=== PATIENT | male | born 1950 | race Caucasian/White ===

== ENCOUNTER → 2023-09-29 09:07 | Outpatient (REF) | payer OTHER, SELFPAY | LOC: DHCBS MAIN 09:07 | PROVIDERS: ATTENDING PHYSICIAN Nuclear Medicine Nuclear Cardiology; FAMILY PHYSICIAN Internal Medicine | DX: I25.10 Atherosclerotic heart disease of native coronary artery without angina pectoris (principal); I42.8 Other cardiomyopathies | CPT/HCPCS: 93306 ==

== ENCOUNTER 2024-07-16 05:38 | Emergency (ER) | payer OTHER, SELFPAY ==
[2024-07-16 05:41] VITALS: BP 184/116; BMI 33.2
--- NOTE | 2024-07-16 07:05 | ED.GENMED ---
History of Present Illness
<Rodolfo Hutton DO, Resident - Last Filed: 07/16/24 08:39>
General
Chief Complaint: Nose Bleed
Source: patient, records and spouse
Time Seen by Provider: 07/16/24 06:44
History of Present Illness
History of Present Illness:
74-year-old male with past medical history significant for hypertension, hyperlipidemia, CAD, heart failure reduced ejection presents for severe epistaxis, bilateral. Patient reports symptoms started last night, brief and resolved. However this
morning when waking up to use the bathroom at approximately 4:30 AM patient noticed his left nares was bleeding profusely, he describes it as like a faucet. Patient reports not taking any blood thinners, however he does take 81 mg aspirin daily.
In the emergency department patient's blood pressure is 184/116, denies blurry vision, chest pain, shortness of breath, abdominal pain.
Past History
<Rodolfo Hutton DO, Resident - Last Filed: 07/16/24 08:39>
Past History
ED Past Medical History: HTN, Hypercholesterolemia and Other (Sciatica)
ED Past Surgical History: None and Orthopedic (Right total knee replacement, Back surgery)
Social History
Tobacco: Former smoker
Alcohol: Occasional
Personal:
Living: with family
Review of Systems
<Rodolfo Hutton DO, Resident - Last Filed: 07/16/24 08:39>
Review of Systems
Constitutional: Reports no symptoms
EENT: Reports other (Epistaxis bilaterally worse on left)
Respiratory: Reports no symptoms; Denies cough or hemoptysis
Cardiac: Reports no symptoms
ABD/GI: Reports no symptoms
: Reports no symptoms
Phy Exam
<Rodolfo Hutton DO, Resident - Last Filed: 07/16/24 08:39>
General Physical Exam
General Presentation: well appearing and no apparent distress
General Skin: warm and dry
ENT Exam
ENT Exam: other (Fresh blood present in left and right naris, more blood on left than right. Pharyngeal mucosa normal)
Cardiovascular Exam
Cardiovascular Exam: regular rate/rhythm, no edema and no murmur
Pulmonary Exam
Pulmonary Exam: lungs clear and no respiratory distress
Course
<Rodolfo Hutton DO, Resident - Last Filed: 07/16/24 08:39>
Orders/Labs/Results
Orders:
Orders
07/16/24 09:00
Oxymetazoline HCl [Afrin Nasal [place]] See Dose Instructions NASAL BID
Vital Signs
Initial and Last Documented VS:
Initial Vital Signs
Temp Pulse Resp BP Pulse Ox
97.6 F 95 18 184/116 96
07/16/24 05:41 07/16/24 05:41 07/16/24 05:41 07/16/24 05:41 07/16/24 05:41
Last Documented Vital Signs
Temp Pulse Resp BP Pulse Ox
97.6 F 75 16 147/80 97
07/16/24 05:41 07/16/24 07:23 07/16/24 07:23 07/16/24 08:00 07/16/24 08:00
<Maximilian Rivera DO - Last Filed: 07/16/24 08:27>
Orders/Labs/Results
Orders:
Orders
07/16/24 09:00
Oxymetazoline HCl [Afrin Nasal [place]] See Dose Instructions NASAL BID
Vital Signs
Initial and Last Documented VS:
Initial Vital Signs
Temp Pulse Resp BP Pulse Ox
97.6 F 95 18 184/116 96
07/16/24 05:41 07/16/24 05:41 07/16/24 05:41 07/16/24 05:41 07/16/24 05:41
Last Documented Vital Signs
Temp Pulse Resp BP Pulse Ox
97.6 F 75 16 147/80 97
07/16/24 05:41 07/16/24 07:23 07/16/24 07:23 07/16/24 08:00 07/16/24 08:00
Procedures
<Maximilian Rivera DO - Last Filed: 07/16/24 08:27>
Nosebleed
Drug treatment: Lidocaine and Epinephrine
Treatment: local pressure applied
Post treatment bleeding: none- good control
<Rodolfo Hutton DO, Resident - Last Filed: 07/16/24 08:39>
MDM/Problems Addressed
Differential Diagnosis Includes:
Hypertensive urgency, epistaxis, dry mucosa, trauma,
MDM/Problems Addressed:
74-year-old male past medical significant for hypertension, CAD, heart failure with reduced ejection fraction, who reports not taking blood thinners only daily aspirin, presents for 2 episodes of epistaxis
First episode was last night which was brief and self resolving, second episode started this morning at 430 which is much more severe
Patient reports diffuse 'like a faucet' bleeding from his left nare, currently patient is using nasal clip applied to the nasal bridge
Of note blood pressure elevated in emergency department 184/116, patient denies blurry vision, no chest pain abdominal pain or dizziness.
Patient reports no recent illness or sick contacts, no recent trauma to the nose or face
Likely epistaxis secondary to dry mucosa. Encouraged humidifier use during winter
Performed nasal packing with lidocaine and epinephrine soaked cotton swab of the left nare. Patient evacuated nose of clots before procedure
Epistaxis resolved after packing procedure with lidocaine and epinephrine cotton swab
Nares was reevaluated, no active bleed or lesion requiring cauterization was visualized. Small dried blood appreciated on anterior nasal septum on left. Will hold off with silver nitrate cauterization
Patient denies paleness, coldness and fatigue and reports not being anemic at baseline
Will prescribe metolazone nasal drops to be used every 12 hours for the next 3 days
Encourage patient to follow-up with ENT and PCP, ENT referral provided
Stable for discharge, encourage use of blood pressure medication once home
<Rodolfo Hutton DO, Resident - Last Filed: 07/16/24 08:39>
*Critical Care Note
Total Time (30-74mins, 75-104mins- exclusive of procedures): Not Applicable
ED Attending Note
<Rodolfo Hutton DO, Resident - Last Filed: 07/16/24 08:39>
-
Portions of this chart may have been created with voice recognition software.� Occasional wrong word or��sound alike� substitutions may have occurred due to the inherent limitations of voice recognition software.
<Maximilian Rivera DO - Last Filed: 07/16/24 08:27>
ED Attending Note
Patient seen and examined by attending physician: Yes
I performed a history and physical exam of patient and discussed management with resident, I reviewed resident's note and agree with documented findings and plan of care.: Yes
ED Attending Note:
I have reviewed and agree with history and treatment plan by Rodolfo Hutton DO. My exam revealed
74-year-old male in no distress. Bleeding controlled after treatment with epinephrine, lidocaine and compression. Stable for discharge. Follow-up with ENT. Patient given metolazone for 3-day course.
Discharge Plan
Departure
Patient Disposition: Home (Routine Discharge)
Date of Disposition: 07/16/24
Time of Disposition: 08:23
Patient with high blood pressure during this ER visit?: Yes
Condition: Good
Discharge Problem:
Epistaxis not due to trauma
Instructions: Nosebleeds (DC), BLOOD PRESSURE
Prescriptions:
No Action
multivitamin with folic acid [Tab-A-Melany] 1 TABLET tablet
1 tab PO QPM
aspirin 81 MG tablet,delayed release (DR/EC)
81 mg PO QPM
acetaminophen [Tylenol Extra Strength] 500 MG tablet
1,000 mg PO Q8HPRN PRN (Reason: pain)
alprazolam 0.25 mg tablet
0.25 mg PO HSPRN PRN (Reason: anxiety)
rosuvastatin 20 mg tablet
20 mg PO DAILY
sennosides [senna] 1 TABLET tablet
2 tab PO BID PRN (Reason: constipation)
furosemide 40 mg Tablet
40 mg PO DAILY Qty: 30 0RF
carvedilol 6.25 mg Tablet
6.25 mg PO BID Qty: 60 0RF
Entresto 24-26 mg Tablet
1 tab PO BID Qty: 60 0RF
spironolactone 25 mg tablet
12.5 mg PO DAILY Qty: 20 0RF
Jardiance 10 mg tablet
10 mg PO DAILY Qty: 30 0RF
Referrals:
Tushar Kirk MD [Active] - Call in 1-3 days for appt
Jamal Em DO [Family Provider] - Call in 1-3 days for appt
Activity Restrictions/Additional Instructions:
Please call your primary care provider in 1 to 3 days for a follow-up appointment
Please call ENT. Adriana In 1 to 3 days to schedule a follow-up appoint
Please refrain from touching, picking or blowing your nose for the next 3 days
Please take your blood pressure medications when you arrive home
Please return to the emergency department if your symptoms return, worsen or with any concerns. Thank you for choosing [facility]!
Interventions
Interventions:
*Risk Screen - Suicide Last Done: 07/16/24 05:41
*General Assessment Last Done: 07/16/24 05:41
*Neglect/Abuse Screening Last Done: 07/16/24 05:41
ED- Fall Risk Assessment Last Done: 07/16/24 05:43
ED-EENT Assessment Last Done: 07/16/24 07:23
Discharge Date and Time
Print Language: THAI
[2024-07-16 07:06] VITALS: BP 157/97
[2024-07-16 07:23] VITALS: BP 157/97
[2024-07-16 08:00] VITALS: BP 147/80
[2024-07-16] MEDS: AFRIN NASAL SPRAY 2 SPRAYS NASAL (08:42)
== END 2024-07-16 08:54 | disposition home or self-care (01) ==
LOC: EMR 05:38
PROVIDERS: EMERGENCY PHYSICIAN Emergency Medicine; FAMILY PHYSICIAN Internal Medicine
DX: R04.0 Epistaxis (principal); E78.00 Pure hypercholesterolemia, unspecified; I11.0 Hypertensive heart disease with heart failure; I50.9 Heart failure, unspecified; I25.10 Atherosclerotic heart disease of native coronary artery without angina pectoris; Z87.891 Personal history of nicotine dependence; Z79.82 Long term (current) use of aspirin
CPT/HCPCS: 30901; 99282

== ENCOUNTER 2024-07-18 09:38 | Emergency (ER) | payer OTHER, SELFPAY ==
[2024-07-18 09:41] VITALS: BP 166/116
--- NOTE | 2024-07-18 10:21 | ED.GENMED ---
History of Present Illness
General
Chief Complaint: Nose Bleed
Source: patient
Exam Limitations: none
Time Seen by Provider: 07/18/24 10:09
History of Present Illness
History of Present Illness:
Patient returns with a recurrent nosebleed. Here 2 days ago. No source was found however bleeding stopped. Started spontaneously this morning. Does admit to blowing his nose frequently. Feels fine otherwise. No unusual thinners. Stop taking
an aspirin per day
Past History
Past History
ED Past Medical History: HTN, Hypercholesterolemia and Other (Sciatica)
ED Past Surgical History: None and Orthopedic (Right total knee replacement, Back surgery)
Social History
Tobacco: Former smoker
Alcohol: Occasional
Personal:
Living: with family
Phy Exam
Physical Exam
Physical Exam:
General: Nontoxic appearing in no distress
Skin: Warm and dry, no rash. No petechia or purpura
Neuro: Alert, nontoxic, grossly nonfocal
Psychiatric: Good eye contact and appropriate
ENT: Bleeding from the left nares. Right nares clear. Pharynx clear. Mild bleeding at this time.
Course
Vital Signs
Initial and Last Documented VS:
Initial Vital Signs
Pulse Resp BP Pulse Ox
88 18 166/116 98
07/18/24 09:41 07/18/24 09:41 07/18/24 09:41 07/18/24 09:41
Last Documented Vital Signs
Pulse Resp BP Pulse Ox
88 18 161/98 98
07/18/24 09:41 07/18/24 09:41 07/18/24 11:06 07/18/24 09:41
Procedures
Nosebleed
Drug treatment: Lidocaine and Epinephrine
Treatment: Silver nitrate cautery and Merocel packing
Post treatment bleeding: none- good control
*Critical Care Note
Total Time (30-74mins, 75-104mins- exclusive of procedures): Not Applicable
Update Note
Update Note:
After lidocaine with epinephrine was removed. Small bleeding site noted on the septum.
Rechecked prior to discharge. No bleeding. Merocel had been replaced once.
ED Attending Note
-
Portions of this chart may have been created with voice recognition software.� Occasional wrong word or��sound alike� substitutions may have occurred due to the inherent limitations of voice recognition software.
Discharge Plan
Departure
Patient Disposition: Home (Routine Discharge)
Date of Disposition: 07/18/24
Time of Disposition: 10:47
Patient with high blood pressure during this ER visit?: Yes
Discharge Problem:
Left nares epistaxis, Hypertension
Instructions: Nosebleeds (DC), BLOOD PRESSURE
Prescriptions:
No Action
multivitamin with folic acid [Tab-A-Melany] 1 TABLET tablet
1 tab PO QPM
aspirin 81 MG tablet,delayed release (DR/EC)
81 mg PO QPM
acetaminophen [Tylenol Extra Strength] 500 MG tablet
1,000 mg PO Q8HPRN PRN (Reason: pain)
alprazolam 0.25 mg tablet
0.25 mg PO HSPRN PRN (Reason: anxiety)
rosuvastatin 20 mg tablet
20 mg PO DAILY
sennosides [senna] 1 TABLET tablet
2 tab PO BID PRN (Reason: constipation)
furosemide 40 mg Tablet
40 mg PO DAILY Qty: 30 0RF
carvedilol 6.25 mg Tablet
6.25 mg PO BID Qty: 60 0RF
Entresto 24-26 mg Tablet
1 tab PO BID Qty: 60 0RF
spironolactone 25 mg tablet
12.5 mg PO DAILY Qty: 20 0RF
Jardiance 10 mg tablet
10 mg PO DAILY Qty: 30 0RF
Activity Restrictions/Additional Instructions:
Packing removal in 2 [address] Warner.
Or as we discussed, you could carefully remove it tomorrow at home given the holidays
Interventions
Interventions:
*Risk Screen - Suicide Last Done: 07/18/24 11:07
*General Assessment Last Done: 07/18/24 11:07
*Neglect/Abuse Screening Last Done: 07/18/24 11:07
*Nursing Disposition Last Done: 07/18/24 12:33
ED-EENT Assessment Last Done: 07/18/24 11:00
Discharge Date and Time
Discharge Date/Time: 07/18/24 12:34
Print Language: HUNGARIAN
[2024-07-18 11:06] VITALS: BP 161/98
== END 2024-07-18 12:34 | disposition home or self-care (01) ==
LOC: EMR 09:38
PROVIDERS: EMERGENCY PHYSICIAN Emergency Medicine; FAMILY PHYSICIAN Internal Medicine
DX: R04.0 Epistaxis (principal); I10 Essential (primary) hypertension; E78.00 Pure hypercholesterolemia, unspecified; Z87.891 Personal history of nicotine dependence
CPT/HCPCS: 30901; 99282

== ENCOUNTER 2024-07-18 14:50 | Emergency (ER) | payer OTHER, SELFPAY ==
[2024-07-18 14:51] VITALS: BP 162/76
--- NOTE | 2024-07-18 18:17 | ED.GENMED ---
History of Present Illness
General
Chief Complaint: Nose Bleed
Time Seen by Provider: 07/18/24 18:06
History of Present Illness
History of Present Illness:
Patient is a 74-year-old man presenting to the emergency department nosebleed. Per chart review patient was seen here earlier. He had packing in place and was discharged. He thought he was tasting blood and noticed some blood when he was wiping
his nose on the packing so he came in for further evaluation. He denies any blood leaking around the packing. No lightheadedness dizziness. He is not on any blood thinners.
Past History
Past History
ED Past Medical History: HTN, Hypercholesterolemia and Other (Sciatica)
ED Past Surgical History: None and Orthopedic (Right total knee replacement, Back surgery)
Social History
Tobacco: Former smoker
Alcohol: Occasional
Personal:
Living: with family
Phy Exam
Physical Exam
Physical Exam:
GENERAL: in no acute distress
HEENT: normocephalic, extraocular movements intact, moist oral mucosa, nasal packing in place with no bleeding surrounding it, no bleeding in the posterior oropharynx
NECK: normal inspection
RESPIRATORY: no respiratory distress, clear to auscultation bilaterally
CARDIOVASCULAR: regular rate and rhythm
EXTREMITIES: non-tender, no edema/swelling
NEUROLOGIC: awake and alert, moves all extremities
SKIN: warm
Course
Vital Signs
Initial and Last Documented VS:
Initial Vital Signs
Temp Pulse Resp BP Pulse Ox
97.4 F 69 16 162/76 98
07/18/24 14:51 07/18/24 14:51 07/18/24 14:51 07/18/24 14:51 07/18/24 14:51
Last Documented Vital Signs
Temp Pulse Resp BP Pulse Ox
97.4 F 69 16 162/76 98
07/18/24 14:51 07/18/24 14:51 07/18/24 14:51 07/18/24 14:51 07/18/24 14:51
MDM/Problems Addressed
Differential Diagnosis Includes:
Patient is a 74-year-old man presenting to the emergency department with bleeding. Vitals are unremarkable and exam shows packing in place in the left naris with no dried blood around the nostril and no blood in the posterior oropharynx. Patient
was using paper towels to wipe the packing which was bloody. Patient has not noted any active bleeding since he has been here. Will monitor him for further bleeding and to see if the packing needs to be replaced.
*Critical Care Note
Total Time (30-74mins, 75-104mins- exclusive of procedures): Not Applicable
Update Note
Update Note:
On reevaluation patient had no further episodes of bleeding. Posterior oropharynx remains clear. Will discharge patient at this time. Return precautions given.
ED Attending Note
-
Portions of this chart may have been created with voice recognition software.� Occasional wrong word or��sound alike� substitutions may have occurred due to the inherent limitations of voice recognition software.
Discharge Plan
Departure
Patient Disposition: Home (Routine Discharge)
Date of Disposition: 07/18/24
Time of Disposition: 18:53
Patient with high blood pressure during this ER visit?: Yes
Discharge Problem:
Anterior epistaxis
Instructions: Nosebleeds (DC)
Prescriptions:
No Action
multivitamin with folic acid [Tab-A-Melany] 1 TABLET tablet
1 tab PO QPM
aspirin 81 MG tablet,delayed release (DR/EC)
81 mg PO QPM
acetaminophen [Tylenol Extra Strength] 500 MG tablet
1,000 mg PO Q8HPRN PRN (Reason: pain)
alprazolam 0.25 mg tablet
0.25 mg PO HSPRN PRN (Reason: anxiety)
rosuvastatin 20 mg tablet
20 mg PO DAILY
sennosides [senna] 1 TABLET tablet
2 tab PO BID PRN (Reason: constipation)
furosemide 40 mg Tablet
40 mg PO DAILY Qty: 30 0RF
carvedilol 6.25 mg Tablet
6.25 mg PO BID Qty: 60 0RF
Entresto 24-26 mg Tablet
1 tab PO BID Qty: 60 0RF
spironolactone 25 mg tablet
12.5 mg PO DAILY Qty: 20 0RF
Jardiance 10 mg tablet
10 mg PO DAILY Qty: 30 0RF
Referrals:
Jamal Em DO [Family Provider] -
Activity Restrictions/Additional Instructions:
You were seen in the Emergency Department today for possible bleeding from your nose. While you were here you did not have any further episodes of nosebleeds. Please do not touch the packing as discussed. Please come back to the emergency
department if you notice bleeding coming from around the packing or blood in the back of your throat. Please keep your appointment with ENT as scheduled.
We would like for you to follow up with your primary care physician for further evaluation. If you experience fever, worsening of your symptoms, or develop any other new or concerning symptoms, please return to the Emergency Department immediately.
Please see the attached sheet for additional information.
Interventions
Interventions:
*Risk Screen - Suicide Last Done: 07/18/24 14:51
*Neglect/Abuse Screening Last Done: 07/18/24 14:51
ED-EENT Assessment Last Done: 07/18/24 17:09
Discharge Date and Time
Print Language: CHINESE
[2024-07-18 19:10] VITALS: BP 148/80
== END 2024-07-18 19:12 | disposition home or self-care (01) ==
LOC: EMR 14:50
PROVIDERS: EMERGENCY PHYSICIAN Student in an Organized Health Care Education/Training Program; FAMILY PHYSICIAN Internal Medicine
DX: R04.0 Epistaxis (principal); E78.00 Pure hypercholesterolemia, unspecified; I10 Essential (primary) hypertension; Z87.891 Personal history of nicotine dependence
CPT/HCPCS: 99282

== ENCOUNTER → 2024-08-14 07:59 | Outpatient (REF) | payer OTHER, SELFPAY | LOC: RCS 07:59 | PROVIDERS: ATTENDING PHYSICIAN Nuclear Medicine Nuclear Cardiology; FAMILY PHYSICIAN Internal Medicine | DX: I25.10 Atherosclerotic heart disease of native coronary artery without angina pectoris (principal); I42.8 Other cardiomyopathies | CPT/HCPCS: 93306 ==

== ENCOUNTER → 2025-02-28 09:57 | Outpatient (REF) | payer OTHER, SELFPAY | LOC: RCS 09:57 | PROVIDERS: ATTENDING PHYSICIAN Nuclear Medicine Nuclear Cardiology; FAMILY PHYSICIAN Internal Medicine | DX: I25.10 Atherosclerotic heart disease of native coronary artery without angina pectoris (principal); I35.0 Nonrheumatic aortic (valve) stenosis; I42.8 Other cardiomyopathies | CPT/HCPCS: 93306 ==

== ENCOUNTER → 2025-03-29 08:30 | Outpatient (REF) | payer OTHER, SELFPAY | LOC: MRI 08:30 | PROVIDERS: ATTENDING PHYSICIAN Nuclear Medicine Nuclear Cardiology; FAMILY PHYSICIAN Internal Medicine | DX: I42.8 Other cardiomyopathies (principal) | CPT/HCPCS: 75561; 75565; A9585 ==

== ENCOUNTER 2025-05-18 14:29 | Inpatient (IN) | payer OTHER, SELFPAY ==
[2025-05-18] VITALS (8 sets, daily range): BP systolic 98–132; BP diastolic 54–87; BMI 31.5
--- NOTE | 2025-05-18 08:53 | W.ICD.CONTRA ---
Post ICD/PLUG GROWER-D
-
History of DC?: No
LV Function
Left ventricular function study result?: Ejection Fraction </= 35%
ACEI/ARB/ARNI
Patient already on ACEI/ARB/ARNI: Yes
Beta-Russell
Patient already on Beta Russell: Yes
--- NOTE | 2025-05-18 12:01 | ITS.CL.ICD ---
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
Implantable Cardioverter Defibrillator
Procedure Report:
ICD IMPLANTATION REPORT
Date of Procedure: May 18, 2025
Primary Care Provider: Dr Jamal Em
Primary tracer powder blender: Dr Carmelo Fernandez
mower operator: Perry Carbajal M.D.
PROCEDURES:
1. Right Heart Cath, 2. BiV ICD Implant
HISTORY:
Despite guideline directed medical therapy uptitrated to maximally tolerated doses he continues with worsening cardiomyopathy with EF now 20 to 25% and [place] heart association class III congestive heart failure along with left bundle branch block
with a QRS duration of 168 ms.
He had�cardiac MRI March 29, 2025�finding severe dilated cardiomyopathy with severely impaired left ventricular systolic function and calculated ejection fraction of 20%, normal RV function.� Additionally there is finding of mild focal
subendocardial and transmural myocardial enhancement in the inferior lateral wall and inferior wall of the mid left ventricle most consistent with myocardial scarring and not consistent with atypical infiltrative disorder.
Given �NYHA class III congestive heart failure with ejection fraction of 20% despite more than 3 months of guideline directed medical therapy with ECG demonstrating left bundle branch block and QRS duration of 186 ms he is indicated for SYSTEMS ARCHITECT ICD
implantation.
Life expectancy > 1 year
This is a primary prevention ICD indication
After informed consent was obtained, a 'time out' was called and confirmed. The patient was prepped and draped in a sterile fashion.
Lidocaine with epi was used for local anesthesia. Central venous access was obtained via axillary venipuncture. An incision was made along the left chest and a pre-pectoral pocket was formed. Using a Seldinger technique and peel-away sheaths, the
pacing leads were placed under fluoroscopic guidance.
First the right ventricular/defibrillator lead was positioned with its tip at the interventricular septum mid to distal and secured using active-fixation.
Next the cardiac resynchronization lead was positioned.
LEFT BUNDLE PACING FOR CARDIAC RESYNCHRONIZATION
Fluoroscopy was used to determine likely anatomic site for left bundle branch pacing. The Huodongxing C315 sheath was used to deliver the [employer] 3830 Selectsecure pacing lead with the helix exposed just exposed from the sheath tip during continuous
monitoring when pacemapping the septum during gentle clockwise rotation to obtain a paced QRS morphology of a W pattern in lead V1. Once the suspected optimal site was identified, lead deployment was performed with several rapid rotations as paced
QRS morphology was intermittently monitored until a paced QRS complex in lead V1 demonstrated development of an R wave (qR).
Unipolar pacing impedance dropped by approximately 100 ohms suggesting it had reached the left ventricular subendocardial.
Stable VEgm injury current is present throughout final lead position including at end of case, suggesting there was no perforation through the septum into the LV cavity.
Unipolar pacing impedance is 950 Ohms
Unipolar pacing threshold is stable at 1 V @0.4 ms.
Final conduction system paced QRS complex duration is 135 ms
LVAT is 69 ms and peak V5 -> peak V1 timing is 82 ms
The right atrial lead was positioned at the right atrial appendage and secured using active-fixation.
Once testing (see below) showed adequate and stable function, the leads were secured using the suture sleeves. The pocket was liberally irrigated with antibiotic solution. The leads were connected to the generator header and the leads and
generator were placed within the pocket. Fluoroscopy confirmed stable lead position. The pocket was closed in the typical fashion.
IMPLANTS:
ICD Medtronic [id number], SN RTG [id number] S , Left Pectoral
RA Medtronic 5076, SN [id number]
RV Medtronic 6935M, SN TDL [id number] V
Left Bundle: Medtronic 3830 , SN:LFF [id number], Interventricular septum at LBB
DEVICE TESTING:
Sensing: RA 1.8, RV 5 mV, LBB 15 mV
Capture: RA 1 V @ 0.4 ms, RV 1 V @ 0.4ms, LBB 0.75 V@ 0.4ms
Ohms: RA 620, RV 608, LBB 780 (tip to coil)
FINAL PROGRAMMING:
Mando Pacing: DDD 50�130
Tachy parameters:
VF: 188 bpm, ATP X 1, Shock
COMPLICATIONS:
None
CONCLUSIONS:
Normal function of ICD and leads (cardiac resynchronization via left bundle branch pacing ) at implant testing.
RECOMMENDATIONS:
1. Telemetry monitoring, CXR
2. Office wound check in 5-7 days.
Copy:
Primary Care Provider: Dr Jamal Em
Primary tracer powder blender: Dr Carmelo Fernandez
[2025-05-18] MEDS: VANCOCIN 530 MG IV (12:20)
--- NOTE | 2025-05-18 15:39 | CM ---
Reviewed chart. Met with and Mrs. Comer to review discharge plans. He states prior to admission he resides with his spouse in a two story home with two steps to enter. He states he has a full flight of steps to get to bedroom/full
bathroom. He states he has a powder room on the first floor. He states prior to admission he was independent witih ambulation and adls. He states he does not have any DME in the home. He states he has a prescription plan. Medical work-up in
progress. The discharge plan is to return home with his spouse when medically stable.
--- NOTE | 2025-05-18 15:51 | W.DS.TRANS ---
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
-
Discharge Instructions:
Discharge Diagnosis/Procedures ICD with left ventricular pacing lead
Diet Low Cholesterol,2 Gram Sodium
Driving Restrictions No driving for 1 week
Bathing Restrictions OK to Shower
Specialty Instructions Weigh Daily
Instructions:
Stand-Alone Forms: DC Inst - Implanted Device
Changes to Home Medications: No
Discharge Medications:
DC Medications w/original date entered in [employer] [facility]
multivitamin with folic acid 400 mcg tablet (Tab-A-Melany) 1 tab PO QPM Supplement 10/30/19
acetaminophen 500 mg tablet (Tylenol Extra Strength) 1,000 mg PO Q8HPRN PRN pain 10/12/22
aspirin 81 mg tablet,delayed release 81 mg PO QPM Blood Clot Prevention/Tx 10/12/22
alprazolam 0.25 mg tablet 0.25 mg PO HSPRN PRN anxiety 04/14/23
rosuvastatin 20 mg tablet 20 mg PO DAILY High Cholesterol 04/14/23
sennosides 8.6 mg tablet (senna) 2 tab PO BID PRN constipation 04/14/23
sacubitril 24 mg-valsartan 26 mg tablet (Entresto) 1 tab PO BID #60 tabs 04/16/23
spironolactone 25 mg tablet 12.5 mg (1/2 x 25 mg) PO DAILY #20 tabs 04/16/23
carvedilol 6.25 mg tablet 25 mg PO BID 05/18/25
empagliflozin 10 mg tablet (Jardiance) 10 mg PO QPM 05/18/25
Home Medication Changes
Pending Results: No
[2025-05-18] MEDS: TYLENOL 650 MG PO (16:36)
--- NOTE | 2025-05-18 17:44 | PTCARENOTE ---
Pt received from EP lab post ICD placement in left anterior chest, dressing dry and intact , no sign of bleeding or hematoma. Pt given tylenol for incisional discomfort with good effect. Pt up independently to the bathroom, voiding without
difficulty. Chest Xray done in dept. Activity restrictions reviewed with pt and his who state good understanding. Telemetry shows vent. paced rhtyhm.
[2025-05-18] MEDS: TYLENOL 1000 MG PO (20:12)
--- NOTE | 2025-05-18 20:36 | PTCARENOTE ---
Received pt AAOx3, surgical site clean, dry and intact. Arm immobolizer maintained. Education given on arm restrictions. C/O pain at surgical site, per Dr. Raven rai for pt to have 1G of po Tylenol. VSS, V paced on telemetry.
[2025-05-18] MEDS: XANAX 0.25 MG PO (22:47)
[2025-05-19 02:03] VITALS: BP 122/72
[2025-05-19] MEDS: TYLENOL 650 MG PO ×2 (02:29→08:04)
[2025-05-19 02:39] LABS: Hematocrit 44.0 % (39.0-52.0); Hemoglobin 14.6 g/dL (13.0-18.0); Mean Corp Hgb Conc. 33.2 g/dL (33.0-37.0); Mean Corpuscular Volume 90.7 fL (80.0-94.0); Platelet Count 145 10^3/uL (130-400); Red Cell Dist. Width 13.2 % (11.5-14.5)
[2025-05-19 02:50] VITALS: BMI 31.3
[2025-05-19 03:00] LABS: Blood Urea Nitrogen 18 mg/dl (9-20); Calcium 8.7 mg/dl (8.4-10.2); Carbon Dioxide 24 mmol/L (22-30); Chloride 111 mmol/L (98-107); Estimated Creatinine Clearance 80 ml/min; Glucose 83 mg/dl (70-99); Magnesium 2.0 mg/dl (1.6-2.3); Potassium 4.5 mmol/L (3.5-5.1); Sodium 142 mmol/L (135-145); eGFR > 60.00
[2025-05-19 07:30] VITALS: BP 138/86
--- NOTE | 2025-05-19 08:12 | W.PN.CARDCBS ---
Addendum entered and electronically signed by Joe Rosenthal MD 05/19/25 08:35:
I saw and examined the patient.
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
Comment: General: Well developed, well nourished in NAD.
Neck: Supple, no JVD, HJR, carotids +2 B/L, no bruits bilaterally.
Heart: Non displaced PMI, RRR, no murmurs, No S3, S4, no rubs.
Lungs: Scattered rhonchi
Left AICD dressings
Extremities: No clubbing, cyanosis or edema bilaterally.
Neuro: Grossly nonfocal, awake, alert and oriented x3.
Stable cardiology status for discharge to home. Follow-up arranged.
Original Note:
Today's Communication / Plan
-
Stable for discharge to home
Impression / Plan
-
PCP: Dr. Em
Police Superintendent: Dr. Fernandez
Impression:
s/p [employer] MATERIAL HANDLING EQUIPMENT STEVEDORE-D 05/18/2025
NICM EF 20 to 25% by echo 02/2025
Nonobstructive CAD by cardiac cath 09/2022
HTN
LBBB
HTN
HLD
Mild 02/2023
LHC 10/12/2022: Noncritical CAD with 40% OM 1 stenosis, 50% OM2 stenosis, 40-50% RCA stenosis
Echo 03/04/2023:�EF 45%, hypokinetic basal and mid inferoseptum and akinetic inferior wall, mild cLVH, stage I diastolic dysfunction, mild MR, mild with peak/mean gradients 20/10 mmHg, DAVID 1.6cm2
ECHO 04/15/23: EF 35 to 40%, inferoseptal and anteroseptal wall dyskinesis, akinesis of basal inferior wall, mild MR, low-flow aortic stenosis with peak/mean gradients 21/13 mmHg, DAVID 1.0 cm�, trivial pericardial effusion
Echo 02/28/2025: EF 20 to 25%, normal RV size and function, trace to mild MR, mild peak/mean 19/10 mmHg
Plan:
-Patient presented to the hospital for elective MATERIAL HANDLING EQUIPMENT STEVEDORE�D 05/18/25 for worsening EF.
-EF was down at 45% back in 2022 and cardiac cath at that time showed nonobstructive CAD. Patient has been on appropriate medical therapy and EF has continued to decline prompting placement of [employer] MATERIAL HANDLING EQUIPMENT STEVEDORE�D on 05/18/2025
-Left ACW implant site reviewed by me, bulky dressing removed, underlying Aquacel with 2 quarter sized areas of drainage and mild soft tissue swelling, but no hematoma or ecchymosis and he is nontender. Activity limitations and limb restrictions
reviewed with the patient.
-Outpatient doses of Coreg 25 mg BID, spironolactone 12.5 mg daily and Entresto 24/26 mg BID has been continued.
-Patient had noncritical CAD by cardiac cath 10/12/2022 and outpatient doses of aspirin 81 mg daily and Crestor 20 mg daily have been continued
-Patient is stable for discharge to home 05/19/2025
Progress Note - Police Superintendent
Subjective
Date of Service: May 19, 2025
He feels well and wants to go home
Objective
Labs:
05/19/25 02:25
05/19/25 02:25
Labs
Hgb 14.6 g/dL (13.0-18.0) 05/19/25 02:25
Hct 44.0 % (39.0-52.0) 05/19/25 02:25
Plt Count 145 10^3/uL (130-400) 05/19/25 02:25
Sodium 142 mmol/L (135-145) 05/19/25 02:25
Potassium 4.5 mmol/L (3.5-5.1) 05/19/25 02:25
BUN 18 mg/dl (9-20) 05/19/25 02:25
Creatinine 0.9 mg/dL (0.7-1.3) 05/19/25 02:25
Glucose 83 mg/dl (70-99) 05/19/25 02:25
Vital Signs and I&O:
Vital Signs
Temp Pulse Resp BP Pulse Ox
97.6 F 64 18 138/86 98
05/19/25 07:34 05/19/25 07:30 05/19/25 07:34 05/19/25 07:30 05/19/25 08:08
Vital Signs
Temp Pulse Resp BP Pulse Ox
97.6 F 64 18 138/86 98
05/19/25 07:34 05/19/25 07:30 05/19/25 07:34 05/19/25 07:30 05/19/25 08:08
Intake & Output
05/17/25 05/18/25 05/19/25 05/20/25
06:59 06:59 06:59 06:59
Intake Total 840 / 840
Balance 840 / 840
Physical Exam
Physical Exam
GEN: NAD, AAO x 3
LUNGS: RA, no audible wheeze
CV: A sensed V paced on telemetry
--- NOTE | 2025-05-19 08:31 | W.DS.TRANS ---
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
-
Discharge Instructions:
Sleep Apnea Risk Intermediate
Discharge Diagnosis/Procedures ICD with left ventricular pacing lead
Diet Low Cholesterol,2 Gram Sodium
Activity Other activity
Driving Restrictions No driving for 1 week
Bathing Restrictions OK to Shower
Specialty Instructions Weigh Daily
Instructions:
Stand-Alone Forms: DC Inst - Implanted Device
Changes to Home Medications: No
Discharge Medications:
DC Medications w/original date entered in [employer]
multivitamin with folic acid 400 mcg tablet (Tab-A-Melany) 1 tab PO QPM Supplement 10/30/19
acetaminophen 500 mg tablet (Tylenol Extra Strength) 1,000 mg PO Q8HPRN PRN pain 10/12/22
aspirin 81 mg tablet,delayed release 81 mg PO QPM Blood Clot Prevention/Tx 10/12/22
alprazolam 0.25 mg tablet 0.25 mg PO HSPRN PRN anxiety 04/14/23
rosuvastatin 20 mg tablet 20 mg PO DAILY High Cholesterol 04/14/23
sennosides 8.6 mg tablet (senna) 2 tab PO BID PRN constipation 04/14/23
sacubitril 24 mg-valsartan 26 mg tablet (Entresto) 1 tab PO BID #60 tabs 04/16/23
spironolactone 25 mg tablet 12.5 mg (1/2 x 25 mg) PO DAILY #20 tabs 04/16/23
carvedilol 6.25 mg tablet 25 mg PO BID 05/18/25
empagliflozin 10 mg tablet (Jardiance) 10 mg PO QPM 05/18/25
Home Medication Changes
Pending Results: No
[2025-05-19] MEDS: COREG 25 MG PO (09:00)
--- NOTE | 2025-05-19 11:10 | PTCARENOTE ---
Pt up walking around without problem. Incisional discomfort relieved partially with tylenol. Pt seen by and PAULINO Nixon. Telemetry and IV device removed. Discharge instructions reviewed with pt and his regarding activity and
driving restrictions, wound care, medications and their possible side effects CHF guidelines, reporting cares and concerns and follow up appt's. Very good understanding taught back to this RN. Pt escorted out via wheelchair and discharged to home.
== END 2025-05-19 10:50 | disposition home or self-care (01) | DRG 277 ==
LOC: IVU 14:29
PROVIDERS: Nurse Practitioner Adult Health; ADMITTING PHYSICIAN Internal Medicine Cardiovascular Disease; FAMILY PHYSICIAN Internal Medicine
PROC: 02HK3KZ Insertion of Defibrillator Lead into Right Ventricle, Percutaneous Approach (ICD-10-PCS; 2025-05-18)
PROC: 0JH609Z Insertion of Cardiac Resynchronization Defibrillator Pulse Generator into Chest Subcutaneous Tissue and Fascia, Open Approach (ICD-10-PCS; 2025-05-18)
PROC: 02HL3KZ Insertion of Defibrillator Lead into Left Ventricle, Percutaneous Approach (ICD-10-PCS; 2025-05-18)
PROC: 02H63KZ Insertion of Defibrillator Lead into Right Atrium, Percutaneous Approach (ICD-10-PCS; 2025-05-18)
PROC: 4A023N6 Measurement of Cardiac Sampling and Pressure, Right Heart, Percutaneous Approach (ICD-10-PCS; 2025-05-18)
DX: I11.0 Hypertensive heart disease with heart failure (principal); I25.10 Atherosclerotic heart disease of native coronary artery without angina pectoris; I50.22 Chronic systolic (congestive) heart failure; I44.7 Left bundle-branch block, unspecified; I42.0 Dilated cardiomyopathy; E78.5 Hyperlipidemia, unspecified; Z88.0 Allergy status to penicillin; Z82.49 Family history of ischemic heart disease and other diseases of the circulatory system
CPT/HCPCS: 33249; 71045; 80048; 83735; 85027; 93005; 93451; C1769; C1777; C1882; C1887; C1892; C1898